=== PATIENT | female | born 1995 | race Caucasian/White ===

== ENCOUNTER 2017-07-06 19:15 | Emergency (ER) | payer MEDICAID ==
--- NOTE | 2017-07-06 19:34 | ERNOTE ---
Medical Problem HPI - General Time Seen by Provider: 07/06/17 19:22 Source: patient Exam Limitations: no limitations - Immun/Allergies/Home Medications Allergies/Adverse Reactions: Allergies amoxicillin trihydrate [From Augmentin XR] Allergy (Intermediate, Verified 10/20 11:13) Hives potassium clavula *RETIRED-05/25/13 [From Augmentin XR] Allergy (Intermediate, Verified 10/20/14 11:13) Hives Home Medications: HOME MEDICATIONS NK [No Home Medication] 10/20/14 [Last Taken Unknown] - History of Present History Narrative: Patient is here for vaginal bleeding while . Today at 2 pm she ran, belly first into a shelf at a store. Then today at approximately 1845 she was standing and washing dishes when she started having pelvic pain and lower abdominal cramping and then began having vaginal bleeding. She denies any fevers or chills. She denies fevers and chills. She has had care with Dr. Jarvis with this Review of Systems - Review of Systems Constitutional: Present: no symptoms reported EYE: Present: no symptoms reported ENT: Present: no symptoms reported Respiratory: Present: no symptoms reported Cardiology: Present: no symptoms reported Gastrointestinal/Abdominal: Present: no symptoms reported Genitourinary: Present: See HPI Musculoskeletal: Present: no symptoms reported Skin: Present: no symptoms reported Physical Exam - Physical Exam General Appearance: Present: wd/wn, alert, no apparent distress - she is tearful and sad but in no distress Head Exam: Present: normal inspection, no evidence of injury Neck: Present: normal inspection Respiratory: Present: no respiratory distress, normal breath sounds, no accessory muscle use, chest nontender, lungs clear Cardiovascular/Chest: Present: regular rate, rhythm, no murmur, normal peripheral pulses Back Exam: Present: normal inspection, no vertebral tenderness Extremity Exam: Present: normal inspection, normal range of motion ED Progress - Vital Signs Patient's Vital Signs:: I have reviewed the patient's vital signs. - Transfer of Care Physician Sign Out: Marycarmen Yoder Receiving Physician: Christina Haley Departure - Departure Clinical Impression: Bleeding in early Disposition: Home self-care Condition: Fair
[2017-07-06 20:05] LABS: Hematocrit 32.5 % (37.0-47.0); Hemoglobin 10.8 gm/dL (12.5-16.0); Mean Cell Volume 78.5 fl (78-100); Mean Corpuscular Hemoglobin 26.1 pg (27-31); Mean Corpuscular Hgb Conc 33.2 g/dl (32-36); Mean Platelet Volume 10.9 fl (6.0-9.5); Neutrophil # 3.1 K/mm3 (1.3-6.0); Neutrophil % 56.4 % (42-75.0); Platelet Count 213 K/mm3 (150-450); Red Blood Count 4.14 M/mm3 (4.2-5.4); White Blood Count 5.5 K/mm3 (4.0-10.5)
[2017-07-06 20:19] LABS: Urine Appearance Slightly Cloudy; Urine Bilirubin Negative (NEGATIVE); Urine Blood 150 /ul (NEGATIVE); Urine Color Yellow; Urine Ketone Negative (NEGATIVE)
[2017-07-06 20:20] LABS: Urine Bacteria None Seen; Urine Nitrite Negative (NEGATIVE); Urine Protein Negative (NEGATIVE); Urine Urobilinogen Normal (NORMAL); Urine WBC 0-5 /hpf (0-5)
[2017-07-06 20:21] LABS: Urine Amorphous Sediment Few - 1+ (NONE-FEW)
[2017-07-06 20:22] LABS: Urine RBC 0-5 /hpf (0-5)
--- NOTE | 2017-07-06 21:39 | ERNOTE ---
ER Female HPI Stated Complaint: 12 WEEKS , BLEEDING, CRAMPING Presenting Symptoms: pelvic pain, vaginal bleeding Time Seen by Provider: 07/06/17 19:22 Source: patient Immunizations: IMMUNIZATION HX Immunizations Up to Date Yes Allergies/Adverse Reactions: Allergies amoxicillin trihydrate [From Augmentin XR] Allergy (Intermediate, Verified 07/06 19:45) Hives potassium clavula *RETIRED-05/25/13 [From Augmentin XR] Allergy (Intermediate, Verified 07/06/17 19:45) Hives Home Medications: HOME MEDICATIONS Vits96/Iron Fum/Folic [ S] 1 tab PO DAILY 07/06/17 [Last Taken Unknown] - Patient's Past Medical History Patient History - Cardiac/Respiratory: No pertinent hx Patient History - Cancer: No Hx of Cancer Patient History - Surgical Procedures: No surgical history Patient History - Other: None LMP (Calendar): 04/10/17 - Social History Living Situations: home Psych History: No pertinent hx Smoking Status: Never smoker Alcohol Use: none Drug Use: none - Immunizations Immunizations Up to Date: Yes Physical Exam - Physical Exam General Appearance: Present: wd/wn, alert, mild distress Head Exam: Present: normal inspection Neck: Present: normal inspection Respiratory: Present: no respiratory distress Gastrointestinal/Abdominal: Present: normal bowel sounds, soft Pelvic Exam: Present: discharge - dark brown, tender adnexa - right. Absent: active bleeding, lesions, cervical motion tendernes, tender uterus Back Exam: Present: normal inspection, normal range of motion Extremity Exam: Present: normal inspection, non-tender. Absent: decreased range of motion Neurological Exam: Present: alert, oriented Skin Exam: Present: normal color, warm/dry ED Progress - Results and Orders Patient's Lab Results:: I have reviewed the patient's lab results. - Vital Signs Patient's Vital Signs:: I have reviewed the patient's vital signs. Vital Signs: Vital Signs 07/06/17 07/06/17 19:23 21:05 Temperature 36.8 C Pulse Rate 86 76 Respiratory 18 14 Rate Blood Pressure 119/69 110/56 O2 Sat by Pulse 100 99 Oximetry - CT/Ultrasound CT/Ultrasound Narrative: Single intrauterine with gestational age of 9 weeks 0 days by crown- rump length. No heart rate was observed consistent with demise. Normal Doppler flow seen within both ovaries. - Progress/Reassessment Chief Complaint: Genitourinary Problem - Transfer of Care Physician Sign Out: Marycarmen Yoder Brief History: Supposedly 12 weeks , had vaginal bleeding today. Bleeding has slowed down. Receiving Physician: Christina Haley Pending Results: Labs, X-ray results Expected Disposition: Discharge Plan - Plan Plan: I spoke with Dr. Jarvis about the patient, we discussed her ultrasound reports and the plans he needed for her to understand for further treatment. I have discussed those with the patient and her family, and will write them out for the patient to have. Departure Clinical Impression: Bleeding in early , Spontaneous , demise - Departure Disposition: Home self-care Condition: Fair Additional Instructions: Dr. Jarvis has requested the following from you: 1. As long as you have no further bleeding, you are to call his office Saturday morning to set up to have a D&C done. 2. If you have mild bleeding, then call on Saturday as requested. 3. If you have heavy bleeding, you are NOT to eat or drink anything, AND you are to call Dr. Jarvis immediately. Dr. Jarvis's office number is: . If it is after hours, they will get a hold of either Dr. Jarvis or the try out person OB physician. Referrals: Gerber Jarvis DO [Staff Physician] - 07/08/17
[2017-07-07 06:06] VITALS: BP 118/76
== END 2017-07-07 01:07 | disposition home or self-care (01) ==
LOC: ER 19:15
DX: O20.8 Other hemorrhage in early pregnancy (principal); Z3A.12 12 weeks gestation of pregnancy; O03.9 Complete or unspecified spontaneous abortion without complication; Z33.1 Pregnant state, incidental

== ENCOUNTER 2017-07-08 16:04 | Day surgery (SDC) | payer MEDICAID ==
[2017-07-08] MEDS ORDERED: KETOROLAC TROMETHAMINE 30 MG/ML VIAL IV PRN (16:21)
[2017-07-08] MEDS ORDERED: DOXYCYCLINE HYCLATE 100 MG TABLET PO PRN ×2 (16:22→16:23)
[2017-07-08] MEDS ORDERED: RINGER'S SOLUTION,LACTATED 1,000 ML IV PRN (16:24)
[2017-07-08] MEDS ORDERED: RINGER'S SOLUTION,LACTATED 1,000 ML IV ONE (17:00)
[2017-07-08] MEDS ORDERED: LIDOCAINE HCL/EPINEPHRINE 50 ML VIAL IJ ONE (18:00)
--- NOTE | 2017-07-08 18:35 | OR ---
Operative Report - Dictated Report Narrative: DATE OF PROCEDURE: 07/08/2017 INDICATION: 21-year-old with 9 week embryonic demise with cramping and vaginal spotting PREOPERATIVE DIAGNOSIS: 9 week embryonic demise POSTOPERATIVE DIAGNOSIS: Same PROCEDURE: Suction curettage SURGEON: Ravi Jarvis D.O. INSTRUMENT TESTER: None ANESTHESIA: IV sedation with local paracervical block ESTIMATED BLOOD LOSS: Minimal URINE OUTPUT: Not recorded FLUID REPLACEMENT: 300 mL FINDINGS: Dilated cervix with a large amount of products of conception, uterus sounded to 8 cm using suction curet as a probe SPECIMEN(S): Products of conception TECHNIQUE: Patient was taken to the operating room and placed in dorsal lithotomy position after adequate IV sedation. The anterior lip of the cervix was grasped with a long Allis clamp and paracervical block was given using 1% lidocaine with epinephrine. A 9 mm curved suction curet was inserted through the cervical canal into the uterine cavity. Suction was applied and the products of conception were removed. All instruments were removed from the cervix and vagina. Sponge, lap, instrument, needle count correct x 2. DISPOSITION: The patient was transferred to postanesthesia care unit in good condition.
[2017-07-08] MEDS ORDERED: IBUPROFEN 800 MG TABLET ONE (19:08)
[2017-07-08] MEDS ORDERED: IBUPROFEN 800 MG TABLET PO ONE (19:10)
[2017-07-08] MEDS ORDERED: DOXYCYCLINE HYCLATE 100 MG TABLET PO ONE (19:10)
[2017-07-08 19:59] VITALS: BP 113/68
== END 2017-07-08 16:05 | disposition home or self-care (01) ==
LOC: AMB 16:04
PROVIDERS: ATTEND Obstetrics & Gynecology
PROC: 10D17ZZ Extraction of Products of Conception, Retained, Via Natural or Artificial Opening (ICD-10-PCS; principal; 2017-07-08 18:00)
DX: O02.1 Missed abortion (principal); D64.9 Anemia, unspecified; Z68.23 Body mass index [BMI] 23.0-23.9, adult; Z3A.12 12 weeks gestation of pregnancy